=== PATIENT | female | born 1990 | race Caucasian/White ===

== ENCOUNTER 2018-06-17 12:54 | Emergency (ER) | payer MEDICAID ==
[~2018-06-17] VITALS: Ht 180.3 cm; Wt 108.2 kg
[2018-06-17 13:00] VITALS: BP 130/79
== END 2018-06-17 13:42 | disposition left against medical advice (07) ==
LOC: ER 12:54
DX: M25.512 Pain in left shoulder (principal); Z53.21 Procedure and treatment not carried out due to patient leaving prior to being seen by health care provider

== ENCOUNTER 2018-06-20 09:53 | Inpatient (IN) | payer MEDICAID ==
[~2018-06-20] VITALS: Ht 180.3 cm; Wt 108.9 kg
[2018-06-20] MEDS ORDERED: KETOROLAC 30MG/ML VIAL IV STA (10:51)
[2018-06-20 11:51] LABS: BASOPHILS % 1.2 % (0.0-2.0); EOSINOPHILS % 1.3 % (0.0-5.0); HEMATOCRIT. 40.2 % (36.0-48.0); LYMPHOCYTES % 27.4 % (20.0-50.0); MEAN CORPUSCULAR HEMOGLOBIN 26.6 pg (28.0-32.0); MEAN CORPUSCULAR VOLUME 82.4 fL (81.0-99.0); MEAN PLATELET VOLUME 8.5 fl (7.4-10.4); MONOCYTES % 9.6 % (2.0-8.0); NEUTROPHILS % 60.5 % (40.0-76.0); PLATELET 301 x1000/uL (130-400); RED BLOOD CELL COUNT 4.88 mill/uL (4.2-5.4); RED CELL DISTRIBUTION WIDTH 15.7 % (11.6-14.6)
[2018-06-20 11:55] LABS: CHLORIDE 107 mEq/L (98-107)
[2018-06-20 12:07] LABS: HCG SCREEN NEGATIVE
[2018-06-20] MEDS ORDERED: FAMOTIDINE 20MG/2ML VIAL IV ONE (12:15)
[2018-06-20] MEDS ORDERED: ACETAMINOPHEN WITH CODEINE 300/30MG TABLET PO ONE (13:00)
[2018-06-20] MEDS ORDERED: OXYCODONE HCL/ACETAMINOPHEN 5/325MG TABLET PO ONE (15:00)
[2018-06-20 16:00] VITALS: BP 103/52
[2018-06-20 17:00] VITALS: BP 103/52
[2018-06-20] MEDS ORDERED: ONDANSETRON HCL 4MG/2ML INJ IV PRN ×2 (17:45→22:30)
[2018-06-20] MEDS ORDERED: ACETAMINOPHEN 650MG SUPP PR PRN (17:45)
[2018-06-20] MEDS ORDERED: MORPHINE SULFATE 2 MG/ML CPJ (NOT FOR IM USE) IV PRN (17:45)
[2018-06-20] MEDS ORDERED: MORPHINE SULFATE 4 MG/ML CPJ (NOT FOR IM USE) IV PRN (18:30)
[2018-06-20] MEDS: DEXT 5%/0.45% NACL 1000ML 1,000 ML IV SCH (18:31)
[2018-06-20] MEDS ORDERED: HYDROMORPHONE HCL/PF 2MG/ML CPJ IV PRN ×2 (19:45→22:30)
[2018-06-20 20:00] VITALS: BP 105/46
[2018-06-20] MEDS: DIPHENHYDRAMINE 50MG/ML VIAL IV PRN (20:19)
[2018-06-20] MEDS: FAMOTIDINE 20MG/2ML VIAL IV SCH (20:19)
[2018-06-20] MEDS: LORAZEPAM 2MG/ML CPJ IV PRN (20:20)
[2018-06-20] MEDS ORDERED: PROPOFOL 200MG/20ML VIAL IV ONE (21:49)
[2018-06-20] MEDS ORDERED: MIDAZOLAM HCL 2 MG/2 ML VIAL ONE (21:49)
[2018-06-20] MEDS ORDERED: SIMETHICONE 40 MG/0.6 ML 30ML ONE (21:57)
[2018-06-20 22:00] LABS: PARTIAL THROMBOPLASTIN TIME 28.7 sec (23.4-31.0)
[2018-06-20] MEDS ORDERED: SODIUM CHLORIDE 0.9% 1,000 ML IV SCH (22:29)
[2018-06-20] MEDS ORDERED: MEPERIDINE HCL/PF 25MG/ML CPJ IV PRN (22:30)
[2018-06-20] MEDS ORDERED: ATROPINE SULFATE 0.4MG/ML VIAL IV PRN (22:30)
[2018-06-20] MEDS ORDERED: FENTANYL CITRATE/PF 50MCG/ML 2ML VIAL IV PRN (22:30)
[2018-06-20] MEDS ORDERED: MIDAZOLAM HCL 5 MG/5 ML VIAL IV PRN (22:45)
[2018-06-21] VITALS: BP 101/54
[2018-06-21 04:00] VITALS: BP 115/45
[2018-06-21] MEDS: DIPHENHYDRAMINE 50MG/ML VIAL IV PRN ×3 (04:07→23:18)
[2018-06-21 08:00] VITALS: BP 92/45
[2018-06-21] MEDS: FAMOTIDINE 20MG/2ML VIAL IV SCH (09:40)
[2018-06-21] MEDS: DEXT 5%/0.45% NACL 1000ML 1,000 ML IV SCH (10:18)
[2018-06-21] MEDS ORDERED: PROPOFOL 200MG/20ML VIAL IV ONE (11:18)
[2018-06-21 12:00] VITALS: BP 94/45
[2018-06-21] MEDS: OMEPRAZOLE 20MG CAPSULE EXTENDED RELEASE PO SCH (13:30)
[2018-06-21] MEDS ORDERED: DIATR MEGLU/DIATRIZOATE SOLN 30ML PO SCH (15:45)
[2018-06-21] MEDS: SUCRALFATE 1 G/10 ML UDC PO SCH ×3 (17:20→23:18)
[2018-06-21] MEDS: LORAZEPAM 2MG/ML CPJ IV PRN (19:43)
[2018-06-21 20:00] VITALS: BP 144/61
[2018-06-22] VITALS: BP 116/53
[2018-06-22 04:00] VITALS: BP 116/51
[2018-06-22] MEDS: DIATR MEGLU/DIATRIZOATE SOLN 30ML PO SCH ×2 (06:25→08:20)
[2018-06-22 08:00] VITALS: BP 93/42
[2018-06-22] MEDS: DIPHENHYDRAMINE 50MG/ML VIAL IV PRN ×2 (08:07→13:30)
[2018-06-22] MEDS: SUCRALFATE 1 G/10 ML UDC PO SCH ×3 (08:20→17:20)
[2018-06-22] MEDS: OMEPRAZOLE 20MG CAPSULE EXTENDED RELEASE PO SCH (08:20)
[2018-06-22 15:26] VITALS: BP 100/55
== END 2018-06-22 18:28 | disposition home or self-care (01) | DRG 254 ==
LOC: ER 10:23 → 6EST 15:32 → ENRESERV 15:32 → 6EST 16:50
PROVIDERS: ADMIT Internal Medicine; ATTEND Internal Medicine
PROC: 0DB98ZX Excision of Duodenum, Via Natural or Artificial Opening Endoscopic, Diagnostic (ICD-10-PCS; 2018-06-20)
PROC: 0DB78ZX Excision of Stomach, Pylorus, Via Natural or Artificial Opening Endoscopic, Diagnostic (ICD-10-PCS; 2018-06-20)
PROC: 0DC68ZZ Extirpation of Matter from Stomach, Via Natural or Artificial Opening Endoscopic (ICD-10-PCS; principal; 2018-06-20 21:30)
DX: T18.2XXA Foreign body in stomach, initial encounter (principal); T18.3XXA Foreign body in small intestine, initial encounter; K26.9 Duodenal ulcer, unspecified as acute or chronic, without hemorrhage or perforation; E44.1 Mild protein-calorie malnutrition; K29.70 Gastritis, unspecified, without bleeding; F41.9 Anxiety disorder, unspecified; F60.3 Borderline personality disorder; F32.9 Major depressive disorder, single episode, unspecified; J44.9 Chronic obstructive pulmonary disease, unspecified; F90.9 Attention-deficit hyperactivity disorder, unspecified type; F17.210 Nicotine dependence, cigarettes, uncomplicated; X58.XXXA Exposure to other specified factors, initial encounter; Y93.89 Activity, other specified; Y92.89 Other specified places as the place of occurrence of the external cause; Y99.8 Other external cause status; Z90.49 Acquired absence of other specified parts of digestive tract; Z68.35 Body mass index [BMI] 35.0-35.9, adult
CPT/HCPCS: 36415; 71045; 74018; 74021; 74176; 80053; 84703; 85025; 85610; 85730; 88300; 88305; 88312; 88313; 93005; 96374; 99285; J1170; J1200; J1885; J2060; J2250; J2270; J2704; J3490; J7030; Q9963